=== PATIENT | female | born 1985 | race Caucasian/White ===

== ENCOUNTER 2019-12-22 08:38 | Outpatient (CLI) | payer OTHER ==
[2019-12-22 19:47] LABS: SARS-CoV-2 MS2 Positive; SARS-CoV-2 N Gene Negative; SARS-CoV-2 S Gene Negative; SARS-CoV-2 by NAA Not Detected (NotDetected); SARS-CoV-2 orf1ab Negative
== END 2019-12-22 08:39 | disposition home or self-care (01) ==
LOC: LABSCS 08:38
PROVIDERS: ATTEND Obstetrics & Gynecology
DX: Z20.828 Contact with and (suspected) exposure to other viral communicable diseases (principal)
CPT/HCPCS: 87635; U0003

== ENCOUNTER 2019-12-26 05:30 | Inpatient (IN) | payer OTHER ==
[2019-12-26] MEDS ORDERED: Ibuprofen 800 MG TAB PO PRN (05:55)
[2019-12-26] MEDS ORDERED: Diphenoxylate HCl/Atropine Tablet PO PRN ×2 (05:55)
[2019-12-26] MEDS ORDERED: HYDROcodone/Acetaminophen 5/325 mg Tablet PO PRN ×4 (05:55→15:54)
[2019-12-26] MEDS ORDERED: Ondansetron PF 4 MG/2 ML Vial IVP PRN ×3 (05:55→15:54)
[2019-12-26] MEDS ORDERED: NS w/ Oxytocin 10 units 500 ML IV SCH ×2 (05:55)
[2019-12-26] MEDS ORDERED: Acetaminophen 500 MG TAB PO PRN (05:55)
[2019-12-26] MEDS ORDERED: Docusate 100 MG CAP PO PRN (05:55)
[2019-12-26] MEDS ORDERED: Lidocaine 1% (PF) 30 ML VIAL SC PRN (05:55)
[2019-12-26] MEDS ORDERED: NS / Oxytocin 40 units/1000ml 1,000 ML IV PRN (05:55)
[2019-12-26] MEDS ORDERED: Misoprostol 200 MCG TAB PR PRN (05:55)
[2019-12-26] MEDS ORDERED: hydrALAZINE 20 MG/ML VIAL SLOW IVP PRN ×2 (05:55→15:54)
[2019-12-26] MEDS ORDERED: Promethazine HCl 25 MG/ML VIAL IM PRN ×2 (05:55→12:33)
[2019-12-26] MEDS ORDERED: Butorphanol Tartrate 1 MG/ML VIAL SLOW IVP PRN (05:55)
[2019-12-26] MEDS: Lactated Ringer's 1,000 ML IV SCH ×2 (05:57→11:43)
[2019-12-26 06:02] VITALS: BMI 23.7
[2019-12-26 06:19] LABS: Hemoglobin 10.6 g/dL (12.0-16.0); Mean Corpuscular HGB CONC 34.4 g/dL (32.0-36.0); Mean Corpuscular Hemoglobin 31.4 pg (27.0-31.0); Mean Corpuscular Volume 91.3 fL (78.0-98.0); Mean Platelet Volume 8.6 fL (7.4-10.4); Platelet Count 201 thou/uL (130-400); RBC Distribution Width 12.1 % (11.5-14.5); Red Blood Cell (RBC) Count 3.36 mill/uL (4.20-5.40); White Blood Cell (WBC) Count 8.5 thou/uL (4.8-10.8)
[2019-12-26 06:56] LABS: HBSAg Index 0.17 S/CO (0-0.99); Hep B Surf Ag Non-Reactive S/CO (NonReactive); Syphilis Antibody Nonreactive (Nonreactive); Syphilis Antibody Index 0.02 S/CO (<1.00 Non-Reactive)
[2019-12-26] MEDS ORDERED: Bupivacaine/Epinephrine 0.25% 30 ML VIAL ONE (08:39)
[2019-12-26] MEDS ORDERED: EPHEDRINE 25 MG/5 ML SYRINGE ONE (08:39)
[2019-12-26] MEDS ORDERED: Fentanyl 4 mcg/Bup 0.1% Cadd 100 ML ONE (11:32)
[2019-12-26] MEDS ORDERED: Lactated Ringer's 500 ML IV PRN (12:33)
[2019-12-26] MEDS ORDERED: EPHEDRINE 25 MG/5 ML SYRINGE SLOW IVP PRN (12:33)
[2019-12-26] MEDS ORDERED: diphenhydrAMINE 50 MG/ML VIAL IVP PRN (12:33)
[2019-12-26] MEDS ORDERED: Naloxone HCl 0.4 mg/ml Vial IVP PRN ×2 (12:33)
[2019-12-26] MEDS ORDERED: Acetaminophen 325 MG TAB PO PRN (12:33)
[2019-12-26] MEDS ORDERED: Fentanyl 4 mcg/Bupivacaine 0.1% Cassette 100 ML EPIDURAL SCH (12:45)
[2019-12-26] MEDS ORDERED: Communication Order-Pharmacy FS SCH (12:45)
[2019-12-26] MEDS ORDERED: Bisacodyl 10 MG SUPP PR PRN (15:54)
[2019-12-26] MEDS ORDERED: Zolpidem Tartrate 5 MG TAB PO PRN (15:54)
[2019-12-26] MEDS ORDERED: Benzocaine-Menthol 82.5 ML CAN TOP PRN (15:54)
[2019-12-26] MEDS ORDERED: Misoprostol 200 MCG TAB VAG PRN (15:54)
[2019-12-26] MEDS ORDERED: Preparation H Ointment 28 GM TUBE PR PRN (15:54)
[2019-12-26] MEDS ORDERED: Milk Of Magnesia 30 ML UDCUP PO PRN (15:54)
[2019-12-26] MEDS ORDERED: Lanolin Ointment 7 GM TUBE TOP PRN (15:54)
[2019-12-26] MEDS ORDERED: NS / Oxytocin 40 units/1000ml 1,000 ML IV SCH (16:00)
[2019-12-26] MEDS ORDERED: Ibuprofen 800 MG TAB PO SCH (22:00)
[2019-12-26] MEDS: Docusate Calcium (SURFAK) 240 MG CAP PO SCH (22:26)
[2019-12-27] MEDS: Ferrous Sulfate 325 MG TAB PO SCH ×2 (01:00→09:33)
[2019-12-27] MEDS: Ibuprofen 800 MG TAB PO SCH ×3 (01:01→16:22)
[2019-12-27 05:57] LABS: Hemoglobin 9.7 g/dL (12.0-16.0); Mean Corpuscular HGB CONC 32.9 g/dL (32.0-36.0); Mean Corpuscular Hemoglobin 30.4 pg (27.0-31.0); Mean Corpuscular Volume 92.6 fL (78.0-98.0); Mean Platelet Volume 8.6 fL (7.4-10.4); Platelet Count 177 thou/uL (130-400); RBC Distribution Width 12.1 % (11.5-14.5); Red Blood Cell (RBC) Count 3.18 mill/uL (4.20-5.40)
[2019-12-27] MEDS ORDERED: Adacel (T-DAP) 0.5 ML SYRINGE IM ONE (09:00)
[2019-12-27] MEDS ORDERED: Prenatal Vitamin 1 TAB PO SCH (09:00)
[2019-12-27] MEDS ORDERED: FLU VACC QS2020-21(6MOS UP)/PF 60 MCG/0.5 ML SYRINGE IM ONE (09:15)
[2019-12-27] MEDS: Docusate Calcium (SURFAK) 240 MG CAP PO SCH (09:33)
[2019-12-27 16:35] VITALS: BP 99/57; TEMP 98.7
== END 2019-12-27 17:15 | disposition home or self-care (01) | DRG 807 ==
LOC: L&D 05:30 → 3SW 22:20 → EDSTATUS 12-28 14:18
PROVIDERS: ADMIT Obstetrics & Gynecology; ATTEND Obstetrics & Gynecology
PROC: 10D07Z6 Extraction of Products of Conception, Vacuum, Via Natural or Artificial Opening (ICD-10-PCS; principal; 2019-12-26)
PROC: 10907ZC Drainage of Amniotic Fluid, Therapeutic from Products of Conception, Via Natural or Artificial Opening (ICD-10-PCS; 2019-12-26)
PROC: 3E033VJ Introduction of Other Hormone into Peripheral Vein, Percutaneous Approach (ICD-10-PCS; 2019-12-26)
PROC: 0HQ9XZZ Repair Perineum Skin, External Approach (ICD-10-PCS; 2019-12-26)
DX: O99.354 Diseases of the nervous system complicating childbirth (principal); Z37.0 Single live birth; Z3A.39 39 weeks gestation of pregnancy; G43.909 Migraine, unspecified, not intractable, without status migrainosus; G40.909 Epilepsy, unspecified, not intractable, without status epilepticus; O70.0 First degree perineal laceration during delivery; O69.1XX0 Labor and delivery complicated by cord around neck, with compression, not applicable or unspecified
CPT/HCPCS: 36415; 51702; 85027; 86780; 86850; 86900; 86901; 87340; 90471; 90662; G0008; J2590